=== PATIENT | male | born 1985 | race Caucasian/White ===

== ENCOUNTER 2018-12-18 22:18 | Emergency (ER) | payer SELFPAY ==
[~2018-12-18] VITALS: Ht 180.3 cm; Wt 98.0 kg
[2018-12-18 22:33] VITALS: BP 153/90
--- NOTE | 2018-12-18 22:36 | NUR ---
PT TO [facility], XRAYS ORDERED.
--- NOTE | 2018-12-18 23:58 | NUR ---
PT AMBULATED TO [facility]
--- NOTE | 2018-12-19 | NUR ---
33 Y/O M PRESENTS TO ED WITH C/O RT ELBOW AND WRIST PAIN S/P FALL. AAOX4. NO LOC AT TIME OF FALL. PER PT "I WAS SKATEBOARDING AND FALL." NO OBVIOUS DEFORMITY. +CMS. ERMD MADE AWARE OF PT CONDITION.
[2018-12-19] MEDS ORDERED: IBUPROFEN 600 MG TAB PO ONE (00:10)
--- NOTE | 2018-12-19 00:26 | NUR ---
Patient discharged with v/s stable. Written and verbal after care instructions given and explained. Patient verbalized understanding. Ambulatory with steady gait. All questions addressed prior to discharge. Advised to follow up with PMD.
== END 2018-12-18 23:58 | disposition home or self-care (01) ==
LOC: MED 22:18
DX: S52.121A Displaced fracture of head of right radius, initial encounter for closed fracture (principal); S53.401A Unspecified sprain of right elbow, initial encounter; V00.131A Fall from skateboard, initial encounter; Y93.51 Activity, roller skating (inline) and skateboarding; Y92.89 Other specified places as the place of occurrence of the external cause; Y99.8 Other external cause status
CPT/HCPCS: 29105; 73080; 73110; 99283